=== PATIENT | male | born 1960 | race Two or more races ===

== ENCOUNTER → 2016-05-26 | Outpatient (CLI) | payer MEDICARE, MEDICAID ==
[~2016-05-26] MED LIST: ALFUZOSIN HCL10 MG PO; AUGMENTIN TAB875 MG ORAL; BACLOFEN10 MG ORAL; BENTYL10 MG ORAL; CELEBREX200 MG ORAL; CYCLOBENZAPRINE10 MG ORAL; IMODIUM2 MG ORAL; MAGNESIUM250 M3 PO; MS CONTIN15 MG ORAL; NORCO 10/3251 EA ORAL; VIBERZI75 MG PO
--- NOTE | 2016-05-26 11:05 | GI Progress Note ---
Assessment/Plan Problems: (1) Irritable bowel syndrome with diarrhea ICD Codes: K58.0 - Irritable bowel syndrome with diarrhea SNOMED: 425604385 (2) Abdominal pain ICD Codes: R10.9 - Abdominal pain SNOMED: 31058757 (3) Internal hemorrhoids ICD Codes: K64.8 - Internal hemorrhoids SNOMED: 26344755 (4) Sigmoid diverticulosis ICD Codes: K57.30 - Sigmoid diverticulosis SNOMED: 048285089 Status: stable Status Narrative Seen with Dr. Machado. Assessment/Plan Rx Viberzi 75mg BID RTC x 6 months repeat colon x 3 years Subjective Gastrointestinal/Abdominal: Reports: no symptoms - f Subjective pt states Viberzi has worked extremely well for him over the past year Objective T 98.1 BP 105/70 P 74 95 RA HT 6 1 WT 187.1 General Appearance: no apparent distress, alert Cardiovascular: normal rate Respiratory/Chest: normal breath sounds, no respiratory distress Abdominal Exam: normal bowel sounds, non tender, soft Extremities: normal range of motion Kimi Schmidt N.P. May 26, 2016 11:05
[2016-05-26 14:07] VITALS: BP 105/70
== END | disposition home or self-care (01) ==
LOC: PAN 10:42
DX: K58.0 Irritable bowel syndrome with diarrhea (principal); R10.9 Unspecified abdominal pain; K64.8 Other hemorrhoids; K57.30 Diverticulosis of large intestine without perforation or abscess without bleeding
CPT/HCPCS: 99211

== ENCOUNTER 2017-02-16 08:54 | Outpatient (CLI) | payer MEDICARE, MEDICAID ==
[2017-02-16 09:16] VITALS: BP 107/68
[2017-02-16] MEDS ORDERED: MOBIC7.5 MG ORAL (09:27)
[2017-02-16] MEDS ORDERED: NORCO 5-325 TA1 EAC1 ORAL (09:27)
[2017-02-16] MEDS ORDERED: CIALIS5 MG PO (09:27)
[2017-02-16] MEDS ORDERED: NEURONTIN100 MG ORAL (09:27)
--- NOTE | 2017-02-16 09:32 | GI Progress Note ---
Assessment/Plan Problems: (1) Bloating ICD Codes: R14.0 - Abdominal distension (gaseous) SNOMED: 282630311 (2) Abdominal pain ICD Codes: R10.9 - Abdominal pain SNOMED: 88421420 Status: stable Status Narrative Seen with Dr. Machado. Assessment/Plan fu labs to be drawn at Dr. Crook ordered BT @ [facility]. RTC after study Subjective Subjective abdominal pain, cramping after meal No BM x 1 day scheduled to have labs drawn at Dr. Block. Objective Last 24 Hour Vital Signs Date Time Temp Pulse Resp B/P (MAP) Pulse Ox O2 Delivery O2 Flow Rate FiO2 02/16/17 09:16 98.8 65 16 107/68 Weight (Pounds): 178 General Appearance: no apparent distress, alert Cardiovascular: normal rate Respiratory/Chest: normal breath sounds, no respiratory distress Abdominal Exam: normal bowel sounds, non tender, soft Extremities: normal range of motion Kimi Schmidt N.P. Feb 16, 2017 09:32
== END 2017-02-16 09:30 | disposition home or self-care (01) ==
LOC: PAN 08:54
DX: R14.0 Abdominal distension (gaseous) (principal); R10.9 Unspecified abdominal pain
CPT/HCPCS: 99211

== ENCOUNTER 2017-03-18 14:42 | Outpatient (CLI) | payer MEDICARE, MEDICAID ==
[~2017-03-18 14:42] MED LIST changes: +CIALIS5 MG PO; +MOBIC7.5 MG ORAL; +NEURONTIN100 MG ORAL; +NORCO 5-325 TA1 EAC1 ORAL
[2017-03-18 14:51] VITALS: BP 130/73
--- NOTE | 2017-03-18 15:17 | GI Progress Note ---
Assessment/Plan Problems: (1) Small intestinal bacterial overgrowth ICD Codes: K63.89 - Other specified diseases of intestine SNOMED: 211426007 (2) Bloating ICD Codes: R14.0 - Abdominal distension (gaseous) SNOMED: 233189983 (3) Abdominal pain ICD Codes: R10.9 - Abdominal pain SNOMED: 25955350 (4) Irritable bowel syndrome with diarrhea ICD Codes: K58.0 - Irritable bowel syndrome with diarrhea SNOMED: 903943971 Status: stable Status Narrative Seen with Dr. Machado. Assessment/Plan SIBO tx given >> Xifaxan RTC x 1 month Subjective Subjective abdominal pain cramps bloating Objective Last 24 Hour Vital Signs Date Time Temp Pulse Resp B/P (MAP) Pulse Ox O2 Delivery O2 Flow Rate FiO2 03/18/17 14:51 98.3 64 16 130/73 General Appearance: WD/WN, no apparent distress, alert Cardiovascular: normal rate Respiratory/Chest: normal breath sounds, no respiratory distress Abdominal Exam: normal bowel sounds, non tender, soft Extremities: normal range of motion, non-tender Kimi Schmidt NProsperPProsper Mar 18, 2017 15:17
== END 2017-03-18 15:15 | disposition home or self-care (01) ==
LOC: PAN 14:42
DX: R10.9 Unspecified abdominal pain (principal); K58.0 Irritable bowel syndrome with diarrhea; A04.9 Bacterial intestinal infection, unspecified; R14.0 Abdominal distension (gaseous)
CPT/HCPCS: 99211

== ENCOUNTER 2017-04-26 14:05 | Outpatient (CLI) | payer MEDICARE, MEDICAID ==
--- NOTE | 2017-04-26 14:27 | GI Progress Note ---
Assessment/Plan Problems: (1) Small intestinal bacterial overgrowth ICD Codes: K63.89 - Other specified diseases of intestine SNOMED: 161045485 (2) Irritable bowel syndrome with diarrhea ICD Codes: K58.0 - Irritable bowel syndrome with diarrhea SNOMED: 648531107 (3) Abdominal pain ICD Codes: R10.9 - Abdominal pain SNOMED: 46114754 (4) Bloating ICD Codes: R14.0 - Abdominal distension (gaseous) SNOMED: 088870837 Status: stable Status Narrative Seen with Dr. Machado. Assessment/Plan SIBO tx >> Xifaxan repeat abx treatment RTC prn or 3 months if no symptoms. Subjective Subjective s/p SIBO tx with xifaxin, ok for 2 weeks but has returned. abdominal pain / bloating 10lbs weight loss since May 2016. Objective T 97.7 BP 111/75 62 HR WT 177 General Appearance: WD/WN, no apparent distress, alert Cardiovascular: normal rate Respiratory/Chest: normal breath sounds, no respiratory distress Abdominal Exam: normal bowel sounds, non tender, soft Extremities: normal range of motion, non-tender Kimi Schmidt N.PProsper Apr 26, 2017 14:26
[2017-04-26 15:00] VITALS: BP 111/75
== END 2017-04-26 14:37 | disposition home or self-care (01) ==
LOC: PAN 14:05
DX: K58.0 Irritable bowel syndrome with diarrhea (principal); A04.8 Other specified bacterial intestinal infections; R10.9 Unspecified abdominal pain; R14.0 Abdominal distension (gaseous)
CPT/HCPCS: 99211

== ENCOUNTER 2017-07-08 14:11 | Outpatient (CLI) | payer MEDICARE, MEDICAID ==
--- NOTE | 2017-07-08 16:03 | GI Progress Note ---
Assessment/Plan Problems: (1) Irritable bowel syndrome with diarrhea ICD Codes: K58.0 - Irritable bowel syndrome with diarrhea SNOMED: 636805133 (2) Small intestinal bacterial overgrowth ICD Codes: K63.89 - Other specified diseases of intestine SNOMED: 181958414 (3) Abdominal pain ICD Codes: R10.9 - Abdominal pain SNOMED: 60207768 (4) Bloating ICD Codes: R14.0 - Abdominal distension (gaseous) SNOMED: 908070800 (5) Internal hemorrhoids ICD Codes: K64.8 - Internal hemorrhoids SNOMED: 13533743 Status: stable, unchanged Status Narrative Seen with Dr. Machado. Assessment/Plan repeat dose of Xifaxan rx VSL #3 cont viberzi RTC x 2 Subjective Subjective abdominal pain, post meal abdominal bloating 2nd dose of xifaxan, was okay for 10 days then return of symptoms Objective T 97.9 Bp 113/79 HR 66 97 RA General Appearance: WD/WN, no apparent distress, alert Cardiovascular: normal rate Respiratory/Chest: normal breath sounds, no respiratory distress Abdominal Exam: normal bowel sounds, non tender, soft Extremities: normal range of motion, non-tender Kimi Schmidt N.P. Jul 08, 2017 16:03
== END 2017-07-08 14:43 | disposition home or self-care (01) ==
LOC: PAN 14:11
DX: K58.0 Irritable bowel syndrome with diarrhea (principal); A04.8 Other specified bacterial intestinal infections; R10.9 Unspecified abdominal pain; R14.0 Abdominal distension (gaseous); K64.8 Other hemorrhoids
CPT/HCPCS: 99211

== ENCOUNTER 2017-11-04 13:57 | Outpatient (CLI) | payer MEDICARE, MEDICAID ==
[2017-11-04 14:19] VITALS: BP 104/59
[2017-11-04] MEDS ORDERED: VSL#3 CAPSULE1 EACH PO (14:22)
--- NOTE | 2017-11-04 16:34 | GI Progress Note ---
Assessment/Plan Problems: (1) Small intestinal bacterial overgrowth ICD Codes: K63.89 - Other specified diseases of intestine SNOMED: 620356680 (2) Abdominal pain ICD Codes: R10.9 - Abdominal pain SNOMED: 76693168 (3) Bloating ICD Codes: R14.0 - Abdominal distension (gaseous) SNOMED: 336173814 (4) Irritable bowel syndrome with diarrhea ICD Codes: K58.0 - Irritable bowel syndrome with diarrhea SNOMED: 732030845 Status: stable Status Narrative Discussed with Dr. Machado. Assessment/Plan Viberzi refill VSL #3 RTC PRN The patient was seen and examined at bedside and all new and available data was reviewed in the patients chart. I agree with the above findings, impression and plan. (Patient seen earlier today. Signature stamp does not reflect patient encounter time.). - Bennie Machado MD Subjective Subjective abdominal bloating, very little xifaxan x 2 weeks VSL #3 costly Objective Last 24 Hour Vital Signs Date Time Temp Pulse Resp B/P (MAP) Pulse Ox O2 Delivery O2 Flow Rate FiO2 11/04/17 14:19 98.1 75 16 104/59 94 98.1 General Appearance: WD/WN, no apparent distress, alert Cardiovascular: normal rate Respiratory/Chest: normal breath sounds, no respiratory distress Abdominal Exam: normal bowel sounds, non tender, soft Extremities: normal range of motion, non-tender Ivone Schmidt [employer] DEAN Nov 04, 2017 16:34
== END 2017-11-04 14:30 | disposition home or self-care (01) ==
LOC: PAN 13:57
DX: K58.0 Irritable bowel syndrome with diarrhea (principal); R14.0 Abdominal distension (gaseous); R10.9 Unspecified abdominal pain; K63.89 Other specified diseases of intestine
CPT/HCPCS: 99211

== ENCOUNTER 2018-05-25 13:59 | Outpatient (CLI) | payer MEDICARE, MEDICAID ==
[~2018-05-25 13:59] MED LIST changes: +VSL#3 CAPSULE1 EACH PO
--- NOTE | 2018-05-25 15:29 | GI Initial Consult Note ---
History of Present Illness General Date patient seen: May 25, 2018 Time patient seen: 15:24 Referring physician: None Reason for Consultation: IBS Present Illness HPI This is a 58-year-old male patient presents today for follow-up appointment in regards to his IBS symptoms. The patient has a history of a colonoscopy back in 2013 for severe diarrhea n and small internal hemorrhoids. Oted to have scattered sigmoid diverticulosis. Patient was then diagnosed with a IBS-D, was placed on Viberzi in which his symptoms have been well controlled. The patient denies any GI symptoms today; denies any abdominal pain, constipation, diarrhea , nausea vomiting or any abdominal bloating. The patient denies any weight loss or changes in dietary habits. No signs of abuse or neglect. Patient is not fall risk. Home Meds Reported Medications Lact Cmb2/S.thermophl/Bif Cmb1 (VSL#3 CAPSULE) 1 Each Capsule, 1 EACH PO DAILY, CAP 11/04/17 Tadalafil (CIALIS) 5 Mg Tablet, 5 MG PO DAILY, TAB 02/16/17 Hydrocodone Bit/Acetaminophen 5-325* (NORCO 5-325 TABLET*) 1 Each Tablet, 1 TAB ORAL PRN PRN for For Pain, TAB 02/16/17 Meloxicam* (MOBIC*) 7.5 Mg Tablet, 7.5 MG ORAL BID, #30 TAB 0 Refills 02/16/17 Gabapentin* (NEURONTIN*) 100 Mg Capsule, 300 MG ORAL BID, #15 CAP 0 Refills 02/16/17 Eluxadoline (Viberzi) 75 Mg Tablet, 75 MG PO BID, TAB 05/26/16 Cyclobenzaprine Hcl* (FLEXERIL*) 10 Mg Tablet, 5 MG ORAL DAILY, TAB 04/30/15 Magnesium (MAGNESIUM) 250 Mg Tablet, 1000 MG PO QHS, TAB 07/31/14 Morphine Sulfate (Morphine Sulfate) 15 Mg Tabcr, 15 MG ORAL EVERY 12 HOURS, TAB 12/08/12 Baclofen* (BACLOFEN*) 10 Mg Tablet, 20 MG ORAL TID, TAB 12/08/12 Allergies: Coded Allergies: TOPIRAMATE (Verified Allergy, Unknown, 01/14/10) Uncoded Allergies: TOPAMAX (Allergy, Mild, EYE SWELLING,ITCHING., 08/23/07) Patient History History Provided By: Patient, Medical Record PMH Narrative IBS diarrhea Social History: Denies: smoking, alcohol use, drug use, other Review of Systems All Other Systems: negative except mentioned in HPI Physical Exam Denies any weight loss Temperature 98.0 blood pressure 102/63 Pulse 66 96% room air Sp02 EP Interpretation: reviewed, normal General Appearance: well appearing, no apparent distress, alert Head: normocephalic EENT: PERRL/EOMI, normal ENT inspection Neck: supple Respiratory: normal breath sounds, no respiratory distress Cardiovascular: normal rate Gastrointestinal: normal inspection, non tender, soft, normal bowel sounds, non -distended Rectal: deferred Genitourinary: deferred Musculoskeletal: normal inspection, back normal Neurologic: normal inspection, alert, oriented x3, responsive Psychiatric: normal inspection, judgement/insight normal, memory normal Skin: normal inspection, normal color, no rash, warm/dry, palpation normal, well hydrated Lymphatic: normal inspection, no adenopathy GI: Plan Problems: (1) Small intestinal bacterial overgrowth (2) Irritable bowel syndrome with diarrhea (3) Abdominal pain (4) Sigmoid diverticulosis Plan Colonoscopy to be scheduled next Wednesday, June 01, 2018. - CLD & (Nulytely/Suprep/Movi-Prep) prep instructions given and acknowledged by patient. - NPO @ [place] day prior procedure explained. Prescription for Viberzi given Will follow with additional recs post procedure. Seen with Dr. Machado. Thank you for this patient referral. The patient was seen and examined at bedside and all new and available data was reviewed in the patients chart. I agree with the above findings, impression and plan. (Patient seen earlier today. Signature stamp does not reflect patient encounter time.). - MD Roxana Loja,[facility] HospitalShane ICE HANDLER May 25, 2018 15:29
== END 2018-05-25 14:29 | disposition home or self-care (01) ==
LOC: PAN 13:59
DX: K58.0 Irritable bowel syndrome with diarrhea (principal); A04.9 Bacterial intestinal infection, unspecified; K57.90 Diverticulosis of intestine, part unspecified, without perforation or abscess without bleeding; K64.8 Other hemorrhoids
CPT/HCPCS: 99212

== ENCOUNTER 2018-06-01 06:49 | Day surgery (SDC) | payer MEDICARE, MEDICAID ==
[~2018-06-01] VITALS: Ht 185.4 cm; Wt 83.0 kg
[2018-06-01] VITALS (9 sets, daily range): BP systolic 96–108; BP diastolic 62–77
[2018-06-01] MEDS ORDERED: Hydromorphone 0.5mg/0.5ml inj IVP PRN (08:45)
--- NOTE | 2018-06-01 08:49 | Pre-Procedure Note/Attestation ---
Pre-Procedure Note/Attestation Complete Prior to Procedure Planned Procedure: not applicable Procedure Narrative: colonoscopy Indications for Procedure Pre-Operative Diagnosis: screening Attestation I attest that I discussed the nature of the procedure; its benefits; risks and complications; and alternatives (and the risks and benefits of such alternatives ), prior to the procedure, with the patient (or the patient's legal canvas products sales representative). I attest that, if there was a reasonable possibility of needing a blood transfusion, the patient (or the patient's legal canvas products sales representative) was given the [facility] standardized written summary, pursuant to the [employer] Blood Safety Act ([place] Health and Safety Code # 1645, as amended). I attest that I re-evaluated the patient just prior to the surgery and that there has been no change in the patient's H&P, except as documented below: Bennie Machado MD Jun 01, 2018 08:48
--- NOTE | 2018-06-01 08:50 | Short Stay Surgery H&P ---
History of Present Illness History of Present Illness Chief Complaint screening colon HPI Dylan Zamudio is a 58 year old male who was admitted on for Abdominal Pain Patient History Allergies: Coded Allergies: TOPIRAMATE (Verified Allergy, Severe, 06/01/18) eyes and throat swells up PAST MEDICAL HISTORY: (1) Small intestinal bacterial overgrowth (2) Sigmoid diverticulosis (3) Irritable bowel syndrome with diarrhea (4) Abdominal pain (5) Bloating (6) Internal hemorrhoids (7) Chronic back pain Medication History Scheduled Baclofen* (Baclofen*), 20 MG ORAL TID, (Reported) Cyclobenzaprine Hcl* (Flexeril*), 5 MG ORAL DAILY, (Reported) Eluxadoline (Viberzi), 75 MG PO BID, (Reported) Gabapentin* (Neurontin*), 300 MG ORAL BID, (Reported) Magnesium (Magnesium), 1,000 MG PO QHS, (Reported) Meloxicam* (Mobic*), 7.5 MG ORAL BID, (Reported) Morphine Sulfate (Morphine Sulfate), 15 MG ORAL EVERY 12 HOURS, (Reported) Tadalafil (Cialis), 5 MG PO DAILY, (Reported) Scheduled PRN Hydrocodone Bit/Acetaminophen 5-325* ([place] 5-325 Tablet*), 1 TAB ORAL PRN PRN for For Pain, (Reported) Review of Systems Cardiovascular: Reports: no symptoms Respiratory: Reports: no symptoms Gastrointestinal: Reports: no symptoms Genitourinary: Reports: no symptoms Neurologic: Reports: no symptoms Endocrine: Reports: no symptoms Hematologic: Reports: no symptoms Physical Exam Vital Signs Last Vital Signs Date Time Temp Pulse Resp B/P (MAP) Pulse Ox O2 Delivery O2 Flow Rate FiO2 06/01/18 07:34 Room Air 06/01/18 07:30 97.8 72 18 108/77 97 Skin: normal HENT: normal Heart: normal Lungs: normal Abdomen: normal Extremities: normal Plan Plan of Care colonoscopy Attestation Are the patient's medical conditions optimized for surgery? Attestation Response: yes Bennie Machado MD Jun 01, 2018 08:50
[2018-06-01] MEDS ORDERED: Propofol 200mg/20ml IV ONE (09:00)
[2018-06-01] MEDS ORDERED: Lidocaine 1% MPF 10mg/ml 5ml ONE (09:00)
--- NOTE | 2018-06-01 09:15 | Endoscopy Procedure Note ---
Endoscopy Procedure Note General Indication for Procedure: screening Procedures Performed: colonoscopy Operative Findings/Diagnosis: one polyp Specimen: yes Pt Tolerated Procedure Well: Yes Estimated Blood Loss: none Anesthesia Anesthesiologist: merlyn Anesthesia: MAC Inserted Devices Implant(s) used?: No Quality Quality of Bowel Preparation: Excellent Did scope reach the cecum?: Yes Was there any complications?: No GI Core Measures 50 yrs or older w/o bx or poly: No 10yrs. F/U not recommended: Yes If not recommended, why?: Above average risk 10 yrs. F/U needed: Yes 18 years or older w/prev. colo: Yes <3yrs. since last colonoscopy: No Bennie Machado MD Jun 01, 2018 09:15
--- NOTE | 2018-06-01 09:27 | Anethesia Preoperative Eval ---
Anesthesia Pre-op PMH/ROS General Date of Evaluation: Jun 01, 2018 Time of Evaluation: 08:40 Anesthesiologist: Jen Dyson CRNA ASA Score: ASA 2 Mallampati Score Class I : Soft palate, uvula, fauces, pillars visible Class II: Soft palate, uvula, fauces visible Class III: Soft palate, base of uvula visible Class IV: Only hard plate visible Mallampati Classification: Class II Surgeon: Jeannette Diagnosis: Abdominal pain Surgical Procedure: Colonoscopy, polypectomy Anesthesia History: none Family History: no anesthesia problems Allergies: Coded Allergies: TOPIRAMATE (Verified Allergy, Severe, 06/01/18) eyes and throat swells up Medications: see eMAR Patient NPO?: Yes NPO Date: Jun 01, 2018 NPO Time: 00:00 Past Medical History Cardiovascular: Denies: HTN, CAD, [place], valve dz, arrhythmia, other Pulmonary: Denies: asthma, COPD, ARSALAN, other Gastrointestinal/Genitourinary: Reports: other - sigmoid diverticulosis; Denies: GERD, CRI, ESRD Neurologic/Psychiatric: Denies: dementia, CVA, depression/anxiety, TIA, other Endocrine: Denies: DM, hypothyroidism, steroids, other HEENT: Denies: cataract (L), cataract (R), glaucoma, KASAAN (L), KASAAN (R), other Hematology/Immune: Denies: anemia, DVT, bleeding disorder, other Musculoskeletal/Integumentary: Reports: other - cervical and lumbar chronic pain; Denies: OA, RA, DJD, DDD, edema PMH Narrative: as above PSxH Narrative: Spinal surgery x 5 Anesthesia Pre-op Phys. Exam Physician Exam Last Vital Signs Date Time Temp Pulse Resp B/P (MAP) Pulse Ox O2 Delivery O2 Flow Rate FiO2 06/01/18 07:34 Room Air 06/01/18 07:30 97.8 72 18 108/77 97 Constitutional: NAD Neurologic: CN 2-12 intact Cardiovascular: RRR Respiratory: CTA Gastrointestinal: S/NT/ND Airway Exam Mallampati Score: Class II MO: full Neck: limited TMD: > 3 FB ROM: full Teeth: intact Dentures: no upper, no lower Anesthesia Pre-op A/P Studies Pre-op Studies: EKG - NSR Risk Assessment & Plan Assessment: ASA 2, ok to proceed Plan: MAC Status Change Before Surgery: No Pre-Antibiotics Given Within 1 Hr of Incision: No Jen Dyson CRNA Jun 01, 2018 09:27
--- NOTE | 2018-06-01 09:28 | Immediate Post-Op Evaluation ---
Immediate Post-Op Evalulation Immediate Post-Op Evalulation Procedure: Colonoscopy, polypectomy Date of Evaluation: Jun 01, 2018 Time of Evaluation: 09:18 IV Fluids: 0.9 NS 500 ml Blood Pressure Systolic: 098 Blood Pressure Diastolic: 62 Pulse Rate: 67 Respiratory Rate: 20 O2 Sat by Pulse Oximetry: 100 Temperature (Fahrenheit): 97.5 Pain Score (1-10): 0 Nausea: No Vomiting: No Complications none Patient Status: awake, reacts, patent Hydration Status: adequate Given Within 1 Hr of Incision: Jen Mijares CRNA Jun 01, 2018 09:28
--- NOTE | 2018-06-01 11:02 | 48 Hour Post Anesthesia Eval ---
Post Anesthesia Evaluation Procedure: Colonoscopy, polypectomy Date of Evaluation: Jun 01, 2018 Time of Evaluation: 11:01 Blood Pressure Systolic: 108 0: 71 Pulse Rate: 67 Respiratory Rate: 20 Temperature (Fahrenheit): 97.9 O2 Sat by Pulse Oximetry: 98 Airway: patent Nausea: No Vomiting: No Pain Intensity: 0 Hydration Status: adequate Cardiopulmonary Status: stable Mental Status/LOC: patient returned to baseline Follow-up Care/Observations: per GI Post-Anesthesia Complications: none Follow-up care needed: ready to discharge Jen Dyson CRNA Jun 01, 2018 11:02
--- NOTE | 2018-06-01 15:00 | Procedure Note ---
DATE OF PROCEDURE: 06/01/2018 SURGEON: Bennie Machado M.D. PROCEDURE: Colonoscopy with biopsy. ANESTHESIA: Per Jen GALLAGHER. INSTRUMENT: Olympus adult flexible colonoscope. INDICATION: Screening colonoscopy. REASON FOR PROCEDURE: The procedure, risks, benefits, and possible consequences, including hemorrhage, aspiration, perforation and infection, and alternative treatments, were explained to the patient/legal guardian by Dr. Bennie Machado and the patient/legal guardian understood and accepted these risks. DESCRIPTION OF PROCEDURE: After informed consent was obtained, the patient was adequately sedated, first rectal exam was performed which was positive for small internal hemorrhoids. Then, the scope was advanced from rectum into the cecum then subsequently into the terminal ileum. Quality of prep was very good. The patient had one diminutive polyp in the sigmoid colon removed with the cold biopsy forceps technique. There was some scattered diverticulosis in the left colon especially in the sigmoid area. Retroflexion of rectum was performed, which showed evidence of small nonbleeding internal hemorrhoids. The patient tolerated procedure well without complication. SUMMARY OF FINDINGS: 1. One polyp removed, see above for details. 2. Diverticulosis. 3. Internal hemorrhoids. RECOMMENDATIONS: 1. Follow up biopsy results and treat accordingly. 2. We recommend repeat colonoscopy in 5 years. Bennie Machado M.D. DR: Vida JOB#: [id number] CC:
--- NOTE | 2018-06-05 11:22 | Cardiology Report ---
APPROVED REPORT EKG Measurement Heart [id number] Normal sinus rhythm Normal ECG
== END 2018-06-01 10:40 | disposition home or self-care (01) ==
LOC: GAS 06:49
DX: Z12.11 Encounter for screening for malignant neoplasm of colon (principal); D12.5 Benign neoplasm of sigmoid colon; K57.30 Diverticulosis of large intestine without perforation or abscess without bleeding; K64.8 Other hemorrhoids; K58.0 Irritable bowel syndrome with diarrhea; G89.29 Other chronic pain; M54.9 Dorsalgia, unspecified; M54.2 Cervicalgia
CPT/HCPCS: 45380; 93005; J2704; 94003; 94150

== ENCOUNTER 2018-06-16 13:41 | Outpatient (CLI) | payer MEDICARE, MEDICAID ==
[2018-06-16 14:04] VITALS: BP 111/77
--- NOTE | 2018-06-16 15:18 | GI Progress Note ---
Assessment/Plan Problems: (1) Chronic back pain ICD Codes: G89.29 - Other chronic pain; M54.9 - Chronic back pain SNOMED: 526955086 (2) Sigmoid diverticulosis ICD Codes: K57.30 - Sigmoid diverticulosis SNOMED: 535515835 (3) Small intestinal bacterial overgrowth ICD Codes: K63.89 - Other specified diseases of intestine SNOMED: 075596702 (4) Irritable bowel syndrome with diarrhea ICD Codes: K58.0 - Irritable bowel syndrome with diarrhea SNOMED: 005763730 (5) Abdominal pain ICD Codes: R10.9 - Abdominal pain SNOMED: 21957117 (6) Bloating ICD Codes: R14.0 - Abdominal distension (gaseous) SNOMED: 165329409 (7) Internal hemorrhoids ICD Codes: K64.8 - Internal hemorrhoids SNOMED: 77576566 Status: stable Status Narrative Seen with Dr. Machado Assessment/Plan Continue Vibbrian Return to clinic in 3 months Repeat colonoscopy in 5 years The patient was seen and examined at bedside and all new and available data was reviewed in the patients chart. I agree with the above findings, impression and plan. (Patient seen earlier today. Signature stamp does not reflect patient encounter time.). - Bennie Machado MD Subjective Subjective Patient has complaint of left-sided abdominal pain States he has abdominal cramping after he eating a meal Has constipation versus diarrhea Objective Last 24 Hour Vital Signs Date Time Temp Pulse Resp B/P (MAP) Pulse Ox O2 Delivery O2 Flow Rate FiO2 06/16/18 14:04 97.7 62 111/77 97 General Appearance: WD/WN, no apparent distress, alert Cardiovascular: normal rate Respiratory/Chest: normal breath sounds, no respiratory distress Abdominal Exam: normal bowel sounds, non tender, soft Extremities: normal range of motion, non-tender Ivone Schmidt [employer] Jun 16, 2018 15:18
== END 2018-06-16 15:41 | disposition home or self-care (01) ==
LOC: PAN 13:41
DX: G89.29 Other chronic pain (principal); K57.30 Diverticulosis of large intestine without perforation or abscess without bleeding; K63.89 Other specified diseases of intestine; K58.0 Irritable bowel syndrome with diarrhea; R10.9 Unspecified abdominal pain; K64.8 Other hemorrhoids; R14.0 Abdominal distension (gaseous)
CPT/HCPCS: G0463